=== PATIENT | female | born 1980 | race Caucasian/White ===

== ENCOUNTER 2019-07-08 13:34 | Emergency (ER) | payer BC ==
[2019-07-08 13:55] VITALS: BP 115/81; PULSE 64; RESP 16; TEMP 98.1
[2019-07-08] MEDS ORDERED: IBUPROFEN 600 MG TAB PO STA (14:02)
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
--- NOTE | 2019-07-08 14:33 | XR ---
EXAMINATION TYPE: XR elbow complete RT DATE OF EXAM: 07/08/2019 COMPARISON: NONE HISTORY: Pain after falling TECHNIQUE: 3 views FINDINGS: There is 10 mm intra-articular chip fracture of the lateral aspect of the radial head witho ut displacement. There is elbow joint effusion. There is no dislocation. Joint spaces are normal. IMPRESSION: Radial head chip fracture. Joint effusion.
--- NOTE | 2019-07-08 14:37 | XR ---
EXAMINATION TYPE: XR humerus RT DATE OF EXAM: 07/08/2019 COMPARISON: NONE HISTORY: Pain TECHNIQUE: 3 views FINDINGS: Humerus is intact. Shoulder joint is anatomic. There is no evidence of humerus fracture. Th ere is nondisplaced intra-articular chip fracture of the radial head. IMPRESSION: Radial head chip fracture. Normal right humerus.
== END 2019-07-08 15:14 | disposition home or self-care (01) ==
LOC: EC 13:34
DX: S52.121A Displaced fracture of head of right radius, initial encounter for closed fracture (principal); F41.9 Anxiety disorder, unspecified; Z79.899 Other long term (current) drug therapy; Z88.1 Allergy status to other antibiotic agents; Z88.0 Allergy status to penicillin; Z88.8 Allergy status to other drugs, medicaments and biological substances; Z88.2 Allergy status to sulfonamides; V18.9XXA Unspecified pedal cyclist injured in noncollision transport accident in traffic accident, initial encounter
CPT/HCPCS: 29105; 99283

== ENCOUNTER → 2022-01-29 | Outpatient (CLI) | payer BC ==
--- NOTE | 2022-01-29 20:02 | CT ---
EXAMINATION TYPE: CT abdomen pelvis w con DATE OF EXAM: 01/29/2022 COMPARISON: None available HISTORY: LLQ pain x months CT DLP: 685 mGycm Automated exposure control for dose reduction was used. TECHNIQUE: Helical acquisition of images was performed from the lung bases through the pelvis. CONTRAST: Performed with Oral Contrast and with IV Contrast, patient injected with 100 mL of Isovue 300. FINDINGS: LUNG BASES: No significant abnormality is appreciated. LIVER/GB: 3 mm cyst is seen in segment 7/6, otherwise no definite hepatic focal lesion. No radiodense gallbladder calculi. PANCREAS: No significant abnormality is seen. SPLEEN: No significant abnormality is seen. ADRENALS: No significant abnormality is seen. KIDNEYS: No significant abnormality is seen. FREE AIR: No free air is visualized. RETROPERITONEAL ADENOPATHY: No pathologically enlarged lymph nodes. REPRODUCTIVE ORGANS: 7 mm hypodensity seen in the right side of the uterine fundus, incompletely miguel acterized by this CT scan. Recommend further ultrasound assessment. 2 tubal ligation clips are seen i n the right side of the pelvis. Left ovarian/adnexal cyst measuring 17 mm, which could be normal for the patient's age. No gross adnexal mass. URINARY BLADDER: No significant abnormality is seen. PELVIC ADENOPATHY: No pathologically enlarged lymph nodes. OSSEOUS STRUCTURES: Anterolisthesis of L5 over S1 with Schmorl's nodes at L2 and L3 upper endplate. BOWEL: Unremarkable stomach and duodenum. 2 short segments of the jejuno-jejunal intussusception are seen in the left side of the mid abdomen best appreciated in images #27 and 19, series 5 without judson dence of bowel obstruction or pneumatosis. Underlying small bowel lesion cannot be excluded. This cou ld explain the patient's pain. Grossly unremarkable remainder of the small bowel. Significant fecal l oading of the rectum, sigmoid colon and descending colon. No gross colonic mass however a small lesio n cannot be excluded. Normal appendix. OTHER: Unremarkable abdominal aorta. Retroaortic left renal vein. Minimal free pelvic fluid, possibly physiological. There are small fat-containing umbilical hernia. IMPRESSION: 1. 2 short segments of proximal jejunal intussusception in the left side of the abdomen as described above. No evidence of pneumatosis or bowel obstruction. They could represent a benign transient intus susception however small underlying bowel lesion cannot be excluded. This could explain the patient's pain. Recommend clinical correlation and surgical consultation. 2. Fecal loading of the left hemicolon and rectum which may suggest constipation. 3. Indeterminate millimetric hypodensity in the uterine fundus as described above, for further electi ve pelvic ultrasound assessment. Other incidental findings as detailed above.
== END | disposition home or self-care (01) ==
LOC: RADCTMAIN 13:32
PROVIDERS: ATTEND Family Medicine
DX: K56.1 Intussusception (principal); K56.41 Fecal impaction
CPT/HCPCS: 74177; Q9967

== ENCOUNTER → 2022-02-11 | Outpatient (CLI) | payer BC ==
--- NOTE | 2022-02-12 07:23 | US ---
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 Benign neoplasm. Hx ablation a few years ago, hx tubal ligation, C Section. A1, hx miscarriage. TECHNIQUE: Transvaginal (TV). Date of LMP: At time of ablation a few years ago. EXAM MEASUREMENTS: Uterus: 8.1 x 4.3 x 3.5 cm Right Ovary: 3.7 x 1.7 x 2.2 cm Left Ovary: 2.7 x 2.0 x 1.7 cm 1. Uterus: Anteverted Appears very heterogeneous. Subcentimeter anechoic area in cervix. Complex a mark seen in cervix: 0.7 x 0.6 x 0.4 cm. Anechoic area seen in upper uterus: 1.2 x 1.0 x 0.8 cm. Hypoechoic, heterogeneous area seen in upper uterus: 1.4 x 1.1 x 0.6 cm. 2. Endometrium: Not well distinguished. 3. Right Ovary: Subcentimeter anechoic areas seen. 4. Left Ovary: Complex area seen: 0.6 x 0.9 x 1.0 cm. 5. Bilateral Adnexa: Anechoic area with echogenic border seen inferior to the left ovary: 1.5 x 1.3 x 1.3 cm. 6. Posterior cul-de-sac: Appears wnl IMPRESSION: 1. Uterine myometrial heterogeneity is nonspecific. Underlying leiomyomatous changes difficult to exc lude. 2. Probable follicular cysts bilateral ovaries. This can be confirmed with follow-up study in [facility] 6 weeks.
== END | disposition home or self-care (01) ==
LOC: RADUSWWP 15:58
PROVIDERS: ATTEND Family Medicine
DX: D26.7 Other benign neoplasm of other parts of uterus (principal)
CPT/HCPCS: 76830